=== PATIENT | male | born 1980 | race Caucasian/White ===

== ENCOUNTER → 2017-09-05 | Outpatient (CLI) | payer SELFPAY ==
--- NOTE | 2017-09-05 17:58 | US ---
EXAMINATION TYPE: US scrotum with doppler. Grayscale and color Doppler Duplex imaging performed of t he scrotum. DATE OF EXAM: 09/05/2017 COMPARISON: NONE CLINICAL HISTORY: N50.8 testicular pain. Intermittent pain EXAM MEASUREMENTS: TESTICLES: Right Testicle: 5.2 x 2.3 x 3.7 cm Left Testicle: 4.2 x 2.2 x 3.3 cm EPIDIDYMIS HEAD: Right Epididymis: 1.0 cm Left Epididymis: 1.4 cm Doppler performed to assess for testicular vascularity; good bilateral color flow and waveforms are s een. There is no evidence of testicular torsion. Presence of hydroceles: fluid collection medial/lower to right testicle = 2.5cm and 2.2cm on the lef t Presence of varicoceles: medial to right testicle and inferior to left testicle Heterogeneous right epididymis IMPRESSION: There is evidence of a right-sided varicocele. No testicular torsion or mass. Bilateral h ydroceles.
== END ==
LOC: RADUSWWP 16:11
PROVIDERS: ATTEND Internal Medicine
DX: I86.1 Scrotal varices (principal)
CPT/HCPCS: 76870; 93975

== ENCOUNTER → 2018-05-27 | Day surgery (SDC) | payer BC ==
[2018-05-25 09:15] VITALS: BMI 25.7
[~2018-05-27] MED LIST: BUPIVACAIN-EPI 0.25%-1:200,000 30 ML VIAL SQ ONE; DEXAMETHASONE SOD PHOSPHATE 10 MG/ML 1 ML VIAL IV ONE; GLYCOPYRROLATE 0.2 MG/ML 2 ML VIAL ONE; HEPARIN SODIUM,PORCINE 5,000 UNIT/ML 1 ML VIAL SQ ONE; HYDROmorphone (PF) 1 MG/ML ONE; HYDROmorphone 0.5 MG/0.5 ML SYRINGE IVP PRN; LACTATED RINGERS 1,000 ML IV ONE; LACTATED RINGERS 1,000 ML IV SCH; LIDOCAINE 1% 20 ML VIAL (10MG/ML) FOR IV START INTRADERMA PRN; MIDAZOLAM (PF) 2 MG/2 ML VIAL IV PRN; MIDAZOLAM 2 MG/2 ML VIAL ONE; NEOSTIGMINE 1 MG/ML 10 ML VIAL ONE; ONDANSETRON 4 MG/2 ML VIAL IVP ONE; PROPOFOL 10 MG/ML 20 ML VIAL IV ONE; ROCURONIUM BROMIDE 10 MG/ML 10 ML VIAL IV ONE; ROPIVACAINE 5 MG/ML 30 ML VIAL ONE; SCOPOLAMINE 1.5MG/72HR PATCH TRANSDERM ONE; SUCCINYLCHOLINE CHLORIDE 100 MG/5 ML SYR IV ONE; ceFAZolin IN SWFI 2 GM/20 ML SYRINGE IVP ONE; ePHEDrine SULFATE/0.9% NACL/PF 50 MG/5 ML SYRINGE IV ONE; fentaNYL (PF) 50 MCG/ML 2 ML AMP ONE
--- NOTE | 2018-05-27 10:30 | P.GSHP ---
History of Present Illness H&P Date: 05/27/18 Chief Complaint: Ventral hernia, umbilical hernia This is a 38-year-old male who presents today for laparoscopic robotic system repair of ventral hernia and umbilical hernia. Past Medical History Additional Past Medical History / Comment(s): VENTRAL HERNIA, HX OF ENLARGED HEART CHILD History of Any Multi-Drug Resistant Organisms: None Reported Past Surgical History: Appendectomy Past Anesthesia/Blood Transfusion Reactions: No Reported Reaction Smoking Status: Current every day smoker - Past Family History Mother Family Medical History: No Reported History Medications and Allergies Home Medications Medication Instructions Recorded Confirmed Type Multivitamins, Thera [Multivitamin 1 tab PO DAILY 05/25/18 05/27/18 History (formulary)] Allergies Allergy/AdvReac Type Severity Reaction Status Date / Time No Known Allergies Allergy Verified 05/27/18 09:25 Surgical - Exam Vital Signs Temp Pulse Resp BP Pulse Ox 97.7 F 54 L 16 117/65 100 05/27/18 09:30 05/27/18 09:30 05/27/18 09:30 05/27/18 09:30 05/27/18 09:30 - General well developed, no distress - Eyes PERRL - ENT normal pinna - Neck no masses - Respiratory normal expansion - Cardiovascular Rhythm: regular - Abdomen 2 cm epigastric ventral hernia 2 cm umbilical hernia Abdomen: soft, non tender Assessment and Plan Assessment: Umbilical and ventral hernia. We'll perform laparoscopic robotic-assisted repair.
[2018-05-27] MEDS: MEPERIDINE 50 MG/ML SYRINGE IVP ONE ×2 (11:53→12:06)
[2018-05-27 12:03] VITALS: TEMP 97
[2018-05-27 12:04] VITALS: RESP 16
--- NOTE | 2018-05-27 12:28 | P.OP ---
Date of Procedure: 05/27/18 Preoperative Diagnosis: Incarcerated umbilical hernia Incarcerated ventral hernia Postoperative Diagnosis: Incarcerated umbilical hernia Incarcerated ventral hernia Procedure(s) Performed: Laparoscopic robotic superior of incarcerated umbilical hernia Laparoscopic robotic Of incarcerated ventral hernia Partial omentectomy Anesthesia: JOSE Surgeon: Abraham San Estimated Blood Loss (ml): 5 Pathology: other (Incarcerated fat/omentum) Condition: stable Disposition: PACU Description of Procedure: The patient was placed on the operating table in the supine position. He received general anesthesia. His abdomen was prepped and draped usual fashion. Using a 5 mm optical trocar under direct visualization the peritoneal cavity was entered in the left upper quadrant. The abdomen was then insufflated. The laparoscope was placed back into the perineal cavity. Next a 8 mm robotic trocar was placed in the left lower quadrant and a 12 mm robotic trocar was placed in the left lateral position. The original 5 mm trocar was exchanged for a 8 mm robotic trocar. The patient's placed in the left side up position. And the patient was undocked the robot. The patient had an incarcerated umbilical hernia and a incarcerated ventral hernia in the epigastric midline. The umbilical hernia was visualized. Using hook cautery the peritoneum over the umbilical hernia was excised. The fascial opening was repaired using 0V LOC suture. Next, the hook cautery was used to dissect the peritoneum at the ventral hernia. The incarcerated fat and omentum was dissected free and transected. The fascial defect was then closed using oh strata fix suture. Next a piece of 11 cm round ventral light ST mesh was placed into the. Cavity and secured with 2 OV lock suture. The mesh overlapped both the ventral and umbilical hernia. The patient was undocked the robot. The needles were retrieved. The incarcerated omentum was retrieved. The fascia of the 12 mm trocar site was closed with 0 Ethibond suture. Skin was closed interrupted 3-0 Monocryl suture. Dermabond dressings was applied. Patient top procedure well and was sent to recovery room stable condition.
--- NOTE | 2018-05-27 14:20 | P.ONQ ---
Anesthesiology Proc Note - PNB - Peripheral Nerve Block Performed Bilateral Rectus Abdominis Single Time Out Performed: Yes Procedure Start Time: : Procedure Stop Time: :33 Indication: Acute Post-Operative Pain, Requested by physician Sedation Type: Sedate with meaningful contact maintained Preparation: Sterile Prep Position: Supine Needle Size: 50mm (2") Needle Gauge: 21 Technique: Ultrasound Injectate: 0.5% Ropivacaine (see comment for volume) (ropi .5% 10cc plus xylo1% 10cc each side) Blood Aspirated: No Pain Paresthesia on Injection Noted: No Resistance on Injection: Normal Events: Uneventful and Well Tolerated
[2018-05-27 15:30] VITALS: BP 123/76; PULSE 55
== END ==
LOC: OR 08:59
PROVIDERS: ATTEND Surgery
DX: K42.0 Umbilical hernia with obstruction, without gangrene (principal); K21.9 Gastro-esophageal reflux disease without esophagitis; K43.6 Other and unspecified ventral hernia with obstruction, without gangrene; F17.210 Nicotine dependence, cigarettes, uncomplicated
CPT/HCPCS: 64488; 49653; C1781; J2250 ×2; J1644; J1100; J2710; J2175; J2405; J3010; J1170; J2795; J0330; J2704; J0690

== ENCOUNTER → 2018-08-14 | Outpatient (CLI) | payer BC ==
--- NOTE | 2018-08-14 18:42 | US ---
EXAMINATION TYPE: US carotid duplex BILAT DATE OF EXAM: 08/14/2018 COMPARISON: NONE CLINICAL HISTORY: R22.1 left neck mass. EXAM MEASUREMENTS: RIGHT: Peak Systolic Velocity (PSV) cm/sec ----- Right CCA: 132 ----- Right ICA: 112 ----- Right ECA: 109 ICA/CCA ratio: 0.84 RIGHT: End Diastole cm/sec ----- Right CCA: 40.8 ----- Right ICA: 46.4 ----- Right ECA: 19.0 LEFT: Peak Systolic Velocity (PSV) cm/sec ----- Left CCA: 147 ----- Left ICA: 158 ----- Left ECA: 114 ICA/CCA ratio: 1.07 LEFT: End Diastole cm/sec ----- Left CCA: 41 ----- Left ICA: 44.5 ----- Left ECA: 28 VERTEBRALS (direction of flow): Right Vertebral: Antegrade Left Vertebral: Antegrade Rhythm: Normal No evident plaque, some elevated velocities seen in bilateral CCA's, could be due to high cardiac out put. No velocity increase seen in bilateral ICA's IMPRESSION: No significant stenosis within the visualized ICAs bilaterally as visualized. There is elevated velocities within the common carotid arteries which could be assessed with carotid CTA as c linically warranted. Criteria for Assigning % of Stenosis / Diameter reduction (Estimation based on the indirect measurements of the internal carotid artery velocities (ICA PSV). 1. Normal (no stenosis)=ICA PSV < 125 cm/s: ratio < 2.0: ICA EDV<40 cm/s. 2. Less than 50% stenosis=ICA PSV < 125 cm/s: ratio < 2.0: ICA EDV<40 cm/s. 3. 50 to 69% stenosis=ICA PSV of 125 to 230 cm/s: ration 2.0 ? 4.0: ICA EDV 40-100 cm/s. 4. Greater than 70% stenosis to near occlusion= ICA PSV > 230 cm/s: ratio > 4.0: ICA EDV > 100 cm/s. 5. Near occlusion= ICA PSV velocities may be low or undetectable: variable ratio and ICA EDV. 6. Total occlusion=unable to detect flow.
== END | disposition home or self-care (01) ==
LOC: RADUSWWP 16:59
PROVIDERS: ATTEND Internal Medicine
DX: I99.9 Unspecified disorder of circulatory system (principal); R22.1 Localized swelling, mass and lump, neck
CPT/HCPCS: 93880

== ENCOUNTER → 2019-03-19 | Outpatient (CLI) | payer BC ==
[2019-03-19 17:14] LABS: HCT 40.1 % (39.0-53.0); HGB 13.7 gm/dL (13.0-17.5); MCH 31.2 pg (25.0-35.0); MCHC 34.2 g/dL (31.0-37.0); MCV 91.3 fL (80.0-100.0); Mean Platelet Volume 6.8; Platelet Count 260 k/uL (150-450); RBC 4.39 m/uL (4.30-5.90); WBC 7.9 k/uL (3.8-10.6)
--- NOTE | 2019-03-19 17:25 | XR ---
EXAMINATION TYPE: XR chest 2V DATE OF EXAM: 03/19/2019 COMPARISON: NONE HISTORY: Left sided chest pain TECHNIQUE: Frontal and lateral views of the chest are obtained. FINDINGS: Heart and mediastinum are normal. Lungs are clear. Diaphragm is normal. Bony thorax is int act. IMPRESSION: Normal chest
[2019-03-19 22:41] LABS: Erythrocyte Sedimentation Rate 2 mm/hr (0-15)
[2019-03-19 23:19] LABS: African American GFR (CKD) 132.3 (60.0-200.0); Albumin 4.4 g/dL (3.80-4.90); Albumin/Globulin Ratio 2.2 (1.60-3.17); Calcium 9.5 mg/dL (8.7-10.3); Chol/HDL Ratio 2.17; LDL Cholesterol,Calculated 39.2 mg/dL (0.0-131.0); Potassium 4.3 mmol/L (3.5-5.5); Total Bilirubin 0.6 mg/dL (0.2-1.2); Total Protein 6.4 g/dL (6.2-8.2); VLDL Calculation 15.8 mg/dL (5.00-40.00)
[2019-03-20 00:22] LABS: Hepatitis A Antibody IgM Non-Reactive (Non-Reactive); Hepatitis B Core IgM Non-Reactive (Non-Reactive); Hepatitis B Surface Antigen Non-Reactive (Non-Reactive); Hepatitis C IgG Antibody Non-Reactive (Non-Reactive)
[2019-03-20 13:07] LABS: Hemoglobin A1C 5.7 % (4.0-6.0)
== END | disposition home or self-care (01) ==
LOC: LABWHC1 16:39
PROVIDERS: ATTEND Internal Medicine
DX: R07.9 Chest pain, unspecified (principal); R10.9 Unspecified abdominal pain; R63.4 Abnormal weight loss
CPT/HCPCS: 36415; 71046; 80053; 80061; 80074; 82150; 82550; 82553; 83036; 84439; 84443; 85027; 85652

== ENCOUNTER 2019-03-20 10:44 | Observation (INO) | payer BC ==
[2019-03-20] MEDS ORDERED: NITROGLYCERIN SL TABS 0.4 MG TAB SUBLINGUAL STA (11:46)
[2019-03-20] MEDS ORDERED: ASPIRIN 81 MG PO STA (11:46)
--- NOTE | 2019-03-20 11:46 | ED ---
General Adult HPI - General Chief complaint: Recheck/Abnormal Lab/Rx Stated complaint: Abn labs Time Seen by Provider: 03/20/19 11:10 Source: patient Mode of arrival: ambulatory Limitations: no limitations - History of Present Illness Initial comments: Patient is a 39-year-old male with no past medical history who presents to emergency department as instructed by Dr. Macdonald. He reports that over the past several months he has had issues with intermittent chest pain. He describes it as a chest pressure which radiates into his left arm. He will have numbness and tingling of his left arm. The pain now radiates to his back. States it is exacerbated by stress. Denies pleuritic chest pain. No ripping or tearing sensation to his back. He will have associated shortness of breath and nausea. Denies vomiting. No previous cardiac history. No family history of sudden cardiac . Denies history of DVT or PE. No calf pain or swelling. Denies pedal edema. No history of heart failure. No family history of blood clotting disorders. Because of the patient's symptoms he did go to Dr. Macdonald's office 2 days ago. He performed an EKG and was concerned. The patient then had a chest x-ray and blood work yesterday. His CK-MB was elevated therefore he was instructed to going to the emergency department. He was told by Dr. Macdonald that he needed a stress test and to be seen by a transcripter as he was on the verge of "having a massive heart attack". The patient has a history of angina. States his last stress test was when he was 23 years old. 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 Currently denies any headaches or visual changes. No unilateral weakness. No back or flank pain. Denies any changes in his bowel or bladder habits. There are no other alleviating, precipitating or modifying factors - Related Data Home Medications Medication Instructions Recorded Confirmed Multivitamins, Thera [Multivitamin 1 tab PO DAILY 05/25/18 03/20/19 (formulary)] Albuterol Inhaler [Ventolin Hfa 2 puff INHALATION RT-Q6H PRN 03/20/19 03/20/19 Inhaler] Previous Rx's Medication Instructions Recorded Acetaminophen Tab [Tylenol] 500 mg PO Q6HR PRN tab 03/22/19 Allergies Allergy/AdvReac Type Severity Reaction Status Date / Time No Known Allergies Allergy Verified 03/20/19 11:40 Review of Systems ROS Statement: Those systems with pertinent positive or pertinent negative responses have been documented in the HPI. ROS Other: All systems not noted in ROS Statement are negative. Past Medical History Additional Past Medical History / Comment(s): VENTRAL HERNIA, HX OF ENLARGED HEART CHILD History of Any Multi-Drug Resistant Organisms: None Reported Past Surgical History: Appendectomy Past Anesthesia/Blood Transfusion Reactions: No Reported Reaction Past Psychological History: Depression Smoking Status: Current every day smoker - Past Family History Mother Family Medical History: No Reported History General Exam Limitations: no limitations General appearance: alert, in no apparent distress Head exam: Present: atraumatic, normocephalic, normal inspection Eye exam: Present: normal appearance, PERRL, EOMI. Absent: scleral icterus, conjunctival injection, periorbital swelling ENT exam: Present: normal exam, mucous membranes moist Neck exam: Present: normal inspection. Absent: tenderness, meningismus, lymphadenopathy Respiratory exam: Present: normal lung sounds bilaterally. Absent: respiratory distress, wheezes, rales, rhonchi, stridor Cardiovascular Exam: Present: regular rate, normal rhythm, normal heart sounds. Absent: systolic murmur, diastolic murmur, rubs, gallop, clicks GI/Abdominal exam: Present: soft, normal bowel sounds. Absent: distended, tenderness, guarding, rebound, rigid Extremities exam: Present: normal inspection, full ROM, normal capillary refill. Absent: tenderness, pedal edema, joint swelling, calf tenderness Back exam: Present: normal inspection Neurological exam: Present: alert, oriented X3, CN II-XII intact Psychiatric exam: Present: normal affect, normal mood Skin exam: Present: warm, dry, intact, normal color. Absent: rash Course Vital Signs 03/20/19 03/20/19 11:10 12:36 Temperature 97.7 F Pulse Rate 91 56 L Respiratory 18 18 Rate Blood Pressure 118/77 115/78 O2 Sat by Pulse 98 98 Oximetry EKG Findings - EKG Comments: EKG Findings:: EKG at 1138 demonstrates a normal sinus rhythm with ventricular rate of 63. KY interval 160. QRS 92. QTC 392. There is J-point elevation in leads 2, 3, aVF. No reciprocal changes. EKG IT segment demonstrates a sinus bradycardia with sinus arrhythmia. Rate of 55. KY interval 124. QRS 92. QTC of 402. Continues to be J-point elevation in the inferior leads. No reciprocal changes. EKG was sent from Dr. Macdonald's office and was reviewed which demonstrates ST segment elevation in the inferior leads. Medical Decision Making - Medical Decision Making Upon arrival the patient is placed in room 8. A 12-lead EKG was performed which demonstrates J-point elevation however I do not see signs of acute STEMI. I recommended laboratory studies to include a troponin. I reviewed the patient's chest x-ray which was performed yesterday which demonstrates no acute intrathoracic findings. We did repeat a second EKG which demonstrates no acute findings. Patient was given aspirin and nitro with some relief in his chest pain. I called and discussed case with Dr. Melissa who accepted the admission. I will place cardiology consult. Patient remained in stable condition awaiting bed on the floor - Lab Data Result diagrams: 03/22/19 05:46 03/22/19 05:46 Lab Results 03/20/19 03/20/19 03/20/19 Range/Units 12:00 12:00 12:00 WBC 6.2 (3.8-10.6) k/uL RBC 4.58 (4.30-5.90) m/uL Hgb 13.9 (13.0-17.5) gm/dL Hct 41.3 (39.0-53.0) % MCV 90.3 (80.0-100.0) fL MCH 30.5 (25.0-35.0) pg MCHC 33.7 (31.0-37.0) g/dL RDW 12.0 (11.5-15.5) % Plt Count 253 (150-450) k/uL Neutrophils % 53 % Lymphocytes % 34 % Monocytes % 4 % Eosinophils % 5 % Basophils % 1 % Neutrophils # 3.3 (1.3-7.7) k/uL Lymphocytes # 2.1 (1.0-4.8) k/uL Monocytes # 0.3 (0-1.0) k/uL Eosinophils # 0.3 (0-0.7) k/uL Basophils # 0.1 (0-0.2) k/uL PT 10.7 (9.0-12.0) sec INR 1.0 (<1.2) APTT 26.1 (22.0-30.0) sec D-Dimer <0.17 (<0.60) mg/L FEU Sodium 139 (137-145) mmol/L Potassium 4.2 (3.5-5.1) mmol/L Chloride 105 (98-107) mmol/L Carbon Dioxide 25 (22-30) mmol/L Anion Gap 9 mmol/L BUN 24 H (9-20) mg/dL Creatinine 0.75 (0.66-1.25) mg/dL Est GFR (CKD-EPI)AfAm >90 (>60 ml/min/1.73 sqM) Est GFR (CKD-EPI)NonAf >90 (>60 ml/min/1.73 sqM) Glucose 90 (74-99) mg/dL Calcium 9.5 (8.4-10.2) mg/dL Magnesium 2.0 (1.6-2.3) mg/dL Total Bilirubin 0.6 (0.2-1.3) mg/dL AST 22 (17-59) U/L ALT 32 (21-72) U/L Alkaline Phosphatase 39 (38-126) U/L Creatine Kinase 152 (55-170) U/L Troponin I (0.000-0.034) ng/mL Total Protein 6.9 (6.3-8.2) g/dL Albumin 4.1 (3.5-5.0) g/dL 03/20/19 Range/Units 12:00 WBC (3.8-10.6) k/uL RBC (4.30-5.90) m/uL Hgb (13.0-17.5) gm/dL Hct (39.0-53.0) % MCV (80.0-100.0) fL MCH (25.0-35.0) pg MCHC (31.0-37.0) g/dL RDW (11.5-15.5) % Plt Count (150-450) k/uL Neutrophils % % Lymphocytes % % Monocytes % % Eosinophils % % Basophils % % Neutrophils # (1.3-7.7) k/uL Lymphocytes # (1.0-4.8) k/uL Monocytes # (0-1.0) k/uL Eosinophils # (0-0.7) k/uL Basophils # (0-0.2) k/uL PT (9.0-12.0) sec INR (<1.2) APTT (22.0-30.0) sec D-Dimer (<0.60) mg/L FEU Sodium (137-145) mmol/L Potassium (3.5-5.1) mmol/L Chloride (98-107) mmol/L Carbon Dioxide (22-30) mmol/L Anion Gap mmol/L BUN (9-20) mg/dL Creatinine (0.66-1.25) mg/dL Est GFR (CKD-EPI)AfAm (>60 ml/min/1.73 sqM) Est GFR (CKD-EPI)NonAf (>60 ml/min/1.73 sqM) Glucose (74-99) mg/dL Calcium (8.4-10.2) mg/dL Magnesium (1.6-2.3) mg/dL Total Bilirubin (0.2-1.3) mg/dL AST (17-59) U/L ALT (21-72) U/L Alkaline Phosphatase (38-126) U/L Creatine Kinase (55-170) U/L Troponin I <0.012 (0.000-0.034) ng/mL Total Protein (6.3-8.2) g/dL Albumin (3.5-5.0) g/dL Disposition Clinical Impression: Chest pain Disposition: ADMITTED IP TO THIS [facility] Condition: Stable Is patient prescribed a controlled substance at d/c from ED?: No Decision to Admit Reason: Admit from EC Decision Date: 03/20/19 Decision Time: 13:27
[2019-03-20 12:22] LABS: Basophils # (A) 0.1 k/uL (0-0.2); Basophils % (A) 1 %; Eosinophils # (A) 0.3 k/uL (0-0.7); Eosinophils % (A) 5 %; HCT 41.3 % (39.0-53.0); HGB 13.9 gm/dL (13.0-17.5); Lymphocytes # (A) 2.1 k/uL (1.0-4.8); Lymphocytes % (A) 34 %; MCH 30.5 pg (25.0-35.0); MCHC 33.7 g/dL (31.0-37.0); MCV 90.3 fL (80.0-100.0); Mean Platelet Volume 6.9; Monocytes # (A) 0.3 k/uL (0-1.0); Monocytes % (A) 4 %; Neutrophils # (A) 3.3 k/uL (1.3-7.7); Neutrophils % (A) 53 %; Platelet Count 253 k/uL (150-450); RBC 4.58 m/uL (4.30-5.90); WBC 6.2 k/uL (3.8-10.6)
[2019-03-20 12:37] LABS: ALT 32 U/L (21-72); AST 22 U/L (17-59); African American GFR (CKD) >90 (>60 ml/min/1.73 sqM); Albumin 4.1 g/dL (3.5-5.0); Alkaline Phosphatase 39 U/L (38-126); Anion Gap 9 mmol/L; Blood Urea Nitrogen 24 mg/dL (9-20); Calcium 9.5 mg/dL (8.4-10.2); Carbon Dioxide 25 mmol/L (22-30); Chloride 105 mmol/L (98-107); Creatine Kinase 152 U/L (55-170); Glucose 90 mg/dL (74-99); Potassium 4.2 mmol/L (3.5-5.1); Sodium 139 mmol/L (137-145); Total Bilirubin 0.6 mg/dL (0.2-1.3); Total Protein 6.9 g/dL (6.3-8.2)
[2019-03-20 12:38] LABS: D-Dimer <0.17 mg/L FEU (<0.60); Partial Thromboplastin Time 26.1 sec (22.0-30.0); Prothrombin Time 10.7 sec (9.0-12.0)
[2019-03-20] MEDS ORDERED: NALOXONE 0.4 MG/ML 1 ML VIAL IV PRN (13:24)
[2019-03-20] MEDS ORDERED: ALBUTEROL NEBULIZED 2.5 MG/3 ML INHALATION PRN (16:31)
[2019-03-20] MEDS ORDERED: ACETAMINOPHEN TAB 500 MG TAB PO PRN (16:32)
[2019-03-20] MEDS ORDERED: LORazepam 0.5 MG TAB PO PRN (16:32)
[2019-03-20] MEDS ORDERED: TEMAZEPAM 15 MG CAP PO PRN (16:32)
--- NOTE | 2019-03-20 16:50 | CT ---
EXAMINATION TYPE: CT angio chest DATE OF EXAM: 03/20/2019 4:37 PM COMPARISON: None HISTORY: chest pain CT DLP: 324.9 mGycm Automated exposure control for dose reduction was used. CONTRAST: CTA scan of the thorax is performed with IV Contrast, patient injected with 79cc mL of Isovue 370, pu lmonary embolism protocol. . There are 3-D post processed images. FINDINGS: The lungs are clear of infiltrate. There is no evidence of a pulmonary mass. There is no pleural effu felicia. Heart size is normal. There is no pericardial effusion. There are no hilar masses. There is no mediastinal adenopathy. Thoracic aorta shows no aneurysm or dissection. The bony thorax is intact. There is normal contrast opacification of the pulmonary arteries. There are no filling defects. IMPRESSION: NORMAL EXAM. NO EVIDENCE OF PULMONARY EMBOLISM.
--- NOTE | 2019-03-20 19:56 | HP ---
HISTORY AND PHYSICAL DATE OF SERVICE: 03/20/2019 CHIEF COMPLAINT: Chest pain. HISTORY OF PRESENT ILLNESS: This 39-year-old gentleman with a past medical history of multiple medical problems including history of GERD, history of vascular disease, ventral hernia, history of enlarged heart as a child, palpitations, history of gynecomastia, history of bronchitis, varicose veins, history of bipolar, schizoaffective disorder, being followed by Dr. Macdonald in the outpatient setting, complaining of chest pains. The chest pain is felt in the anterior part of the chest which is sometimes radiating to the back and on the side also which is mostly discomfort and sometimes sharp in character, also. The pain was getting worse over the past several days and the patient was followed by Dr. Macdonald and recommend the patient to come to the hospital, but the patient has come to the ER only today. EKG showed peaked T-waves in the lateral leads. Otherwise, there is no history of fever, rigors or chills. No history of headache, loss of consciousness or seizures. Patient also reports that the patient is also for the last one year, which is increasing in intensity. Sometimes associated with stress also and relieved with sleep according to him. PAST MEDICAL HISTORY: History of chest pain, history of GERD, history of ventral hernia, history of enlarged heart, history of bipolar schizoaffective disorder. MEDICATIONS: Home medications are multivitamins one p.o. daily, Albuterol p.r.n. ALLERGIES: None. FAMILY HISTORY: Family history of hypertension in family. SOCIAL HISTORY: History of smoking. No history of alcohol intake. REVIEW OF SYSTEMS: ENT: No diminished vision. No diminished hearing. CARDIOVASCULAR SYSTEM: As mentioned earlier. RESPIRATORY: As mentioned earlier. GI no nausea or vomiting. no dysuria. NERVOUS SYSTEM: No numbness or weakness. ALLERGY/IMMUNOLOGY: No asthma or hayfever. MUSCULOSKELETAL: As mentioned earlier. HEMATOLOGY/ONCOLOGY: No history of anemia. ENDOCRINE: No history of diabetes or hypothyroidism. CONSTITUTIONAL: As mentioned earlier. DERMATOLOGY: Negative. RHEUMATOLOGY negative. PSYCHIATRY as mentioned earlier. PHYSICAL EXAMINATION: Alert and oriented x3. Pulse is 55. Blood pressure 121/80, respirations 16, temperature 98 degrees, pulse ox 98% on room air. HEENT: Conjunctivae normal. Oral mucosa moist. NECK is no jugular venous distention. No carotid bruit. No lymph node enlargement. CARDIOVASCULAR: S1-S2 muffled. RESPIRATION: Breath sounds diminished in the bases. No rhonchi. No crackles. ABDOMEN: Soft, nontender. No mass palpable. LEGS: No edema. No swelling. NERVOUS SYSTEM: Higher functions as mentioned earlier. Moves all 4 limbs. No focal motor or sensory deficits. Lymphatics: No lymph nodes palpable in the neck, axillae or groin. SKIN: No ulcer, rash or bleeding. JOINTS: No deforming arthropathy. EKG done repeatedly reviewed including ST changes and peaked T-waves, possible early repolarization changes, otherwise other labs, CBC within normal limits. BUN is 24. ASSESSMENT: 1. Chest pain possible unstable angina. 2. Possible early repolarization changes in the EKG. 3. History of gastroesophageal reflux disease. 4. History of ventral hernia. 5. History enlarged heart as a child. 6. History of gynecomastia. 7. History of bronchitis. 8. History of varicoceles. 9. History of bipolar and schizoaffective disorder. 10.History of nicotine dependence, continued ongoing. 11.FULL CODE. RECOMMENDATIONS AND DISCUSSION: In this 39-year-old gentleman who presented with multiple complex medical issues, we will monitor the patient closely, continue the current medications, management and symptomatic treatment. Otherwise, at this time I recommend rule out myocardial infarction. Cardiology consult. Unstable angina protocol. Guarded prognosis because of multiple complex medical issues. Further recommendations to follow. Repeat labs have also been recommended. MMODL / IJN: [id number] / MTDD
[2019-03-20] MEDS: NICOTINE POLACRILEX 2 MG GUM BUCCAL PRN (20:01)
[2019-03-21] MEDS: NICOTINE POLACRILEX 2 MG GUM BUCCAL PRN ×4 (05:43→23:31)
[2019-03-21] MEDS ORDERED: SODIUM CHLORIDE 0.9% 1,000 ML IV SCH (06:45)
[2019-03-21] MEDS ORDERED: ENOXAPARIN 80 MG/0.8 ML SYRINGE SQ STA (06:45)
[2019-03-21 07:20] LABS: Basophils % (A) 1 %; Eosinophils # (A) 0.3 k/uL (0-0.7); Eosinophils % (A) 5 %; HCT 44.1 % (39.0-53.0); HGB 15.1 gm/dL (13.0-17.5); Lymphocytes # (A) 1.9 k/uL (1.0-4.8); Lymphocytes % (A) 29 %; MCH 31.4 pg (25.0-35.0); MCHC 34.2 g/dL (31.0-37.0); MCV 91.9 fL (80.0-100.0); Monocytes # (A) 0.3 k/uL (0-1.0); Monocytes % (A) 5 %; Neutrophils # (A) 3.7 k/uL (1.3-7.7); Neutrophils % (A) 57 %; Platelet Count 268 k/uL (150-450); RDW 12.1 % (11.5-15.5); WBC 6.4 k/uL (3.8-10.6)
[2019-03-21 07:38] LABS: African American GFR (CKD) >90 (>60 ml/min/1.73 sqM); Anion Gap 7 mmol/L; Blood Urea Nitrogen 16 mg/dL (9-20); Calcium 9.5 mg/dL (8.4-10.2); Carbon Dioxide 25 mmol/L (22-30); Chloride 108 mmol/L (98-107); Glucose 100 mg/dL (74-99); Potassium 4.6 mmol/L (3.5-5.1); Sodium 140 mmol/L (137-145)
--- NOTE | 2019-03-21 07:50 | CONS ---
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 Does not have any significant past medical history. However, he does have a history of previous amphetamine and cocaine use in the past. He came into the hospital with chest pain, sharp in nature in the left lower aspect of the sternum and he also had another sharp pain in the left lateral aspect of the chest. This lasted 4 hours. Pain was focal, nonradiating, unassociated with activity. However, he also indicates to me that he is under a lot of stress, both at work as well as at home and his troponins are normal. EKG is unremarkable. He is resting comfortably. He has been having this pain on and off and he saw his primary care physician who advised him to see a food adviser and explained to him that he may require a stress test. There is an element of anxiety and also patient seems quite exhausted. He had a told me that the first day he had a good sleep was last night when he came in and slept here in the hospital. He is resting comfortably without symptoms. PAST MEDICAL HISTORY: This is remarkable for use of some amphetamines and cocaine use in the past. He has had some ventral hernia surgical repair. He has had an appendectomy. He does not have any hypertension, diabetes, or any previous hospitalization with chest pain. He had a stress test 10 years ago that was normal. He has some underlying depression. SOCIAL HISTORY: The patient is a smoker, smokes about half a pack every day. ALLERGIES: None. MEDICATIONS: He occasionally takes an albuterol inhaler. PHYSICAL EXAMINATION: Blood pressure is 118/70, pulse rate is 64 per minute and regular. HEENT unremarkable. Fundus was not examined by me. Neck is supple. No JVD. I do not hear a carotid bruit. There is no thyromegaly. Heart exam reveals S1, S2 heard normally. No rub, murmur or gallop. Lungs are clear. Abdomen is soft, nontender. Lower extremities reveal normal pulses. No edema. Central nervous system is normal. EKG revealed sinus mechanism. Some early repolarization type picture. No acute changes. Patient also had a CT angiogram that was negative for any aortic pathology or pulmonary embolism. LABORATORY STUDIES: Three sets of troponins are normal. IMPRESSION: 1. Atypical chest pain. 2. Anxiety. 3. History of previous drug use. RECOMMENDATIONS: I have advised the patient that we will do a stress test tomorrow and if this is normal, he can be discharged. I will do a stress echo in the morning and based on the findings, he can be discharged. This will be on Friday. In the interim, if he has any chest pain, he will communicate with me. I will give him 1 dose of Lovenox and 0.9 saline at 75 mL/hour. I have discussed my thoughts in detail with the patient. Thank you very much for the consult. KIKE / DUANE: [id number] /
[2019-03-21] MEDS: MULTIVITAMINS, THERA 1 EACH TAB PO SCH (09:19)
--- NOTE | 2019-03-21 17:58 | PN ---
PROGRESS NOTE DATE OF SERVICE: 03/21/2019. This 39-year-old gentleman who was admitted with chest pain, is being closely monitored. Patient is complaining of some chest pain epigastric and lower part of the chest pain. No fever. No cough. Cardiology following the patient for possible stress test tomorrow. EXAM: Alert and oriented times three. Pulse 50, blood pressure 115/60, respiration 18, temperature 97.7, pulse ox 98% on room air. HEENT is conjunctivae normal. Neck: No JVD. CARDIOVASCULAR: S1, S2. RESPIRATION: Breath sounds diminished in the bases. No rhonchi. No crackles. ABDOMEN is soft, minimal diffuse tenderness in the epigastrium. No mass palpable. LEGS are no edema. No swelling. CENTRAL NERVOUS SYSTEM: No focal deficits. LABS: CBC within normal limits. Otherwise glucose 100. Other labs are noted. TSH is normal. ASSESSMENT: 1. Chest pain possible unstable angina possible gastroesophageal reflux disease. 2. Possible early repolarization changes in the EKG. 3. History of gastroesophageal reflux disease. 4. History of ventral hernia. 5. History of enlarged heart as a child. 6. History of gynecomastia. 7. History of bronchitis. 8. History of varicose veins. 9. History of bipolar schizoaffective disorder. 10.History of nicotine dependence, continued ongoing. 11.FULL CODE. RECOMMENDATIONS AND DISCUSSION: Recommend to continue current medications, management, symptomatic treatment. Continue with unstable angina protocol. Closely follow with Cardiology. Guarded prognosis because of multiple complex medical issues. Further recommendations to follow. Possible stress test in the morning. Further recommendations to follow. MMODL / IJN: [id number] /
[2019-03-22 06:13] LABS: Basophils # (A) 0.1 k/uL (0-0.2); Basophils % (A) 1 %; Eosinophils # (A) 0.4 k/uL (0-0.7); Eosinophils % (A) 7 %; HCT 42.5 % (39.0-53.0); HGB 14.1 gm/dL (13.0-17.5); Lymphocytes # (A) 2.1 k/uL (1.0-4.8); Lymphocytes % (A) 35 %; MCH 30.8 pg (25.0-35.0); MCHC 33.1 g/dL (31.0-37.0); MCV 93.1 fL (80.0-100.0); Mean Platelet Volume 6.5; Monocytes # (A) 0.4 k/uL (0-1.0); Monocytes % (A) 6 %; Neutrophils # (A) 2.8 k/uL (1.3-7.7); Neutrophils % (A) 48 %; Platelet Count 249 k/uL (150-450); RBC 4.57 m/uL (4.30-5.90); RDW 12.1 % (11.5-15.5); WBC 5.8 k/uL (3.8-10.6)
[2019-03-22 06:36] LABS: African American GFR (CKD) >90 (>60 ml/min/1.73 sqM); Anion Gap 6 mmol/L; Blood Urea Nitrogen 15 mg/dL (9-20); Carbon Dioxide 27 mmol/L (22-30); Chloride 107 mmol/L (98-107); Glucose 95 mg/dL (74-99); Potassium 4.5 mmol/L (3.5-5.1); Sodium 140 mmol/L (137-145)
[2019-03-22] MEDS: NICOTINE POLACRILEX 2 MG GUM BUCCAL PRN (09:25)
--- NOTE | 2019-03-22 10:26 | P.PN ---
Subjective This is a pleasant 39-year-old male with no significant past medical history. He has a remote history of cocaine and amphetamine use in the past. He is on observation secondary to chest pain. He continues to have intermittent sharp pain in the left precordial region not associated with activity or exertion. No associated shortness of breath, dizziness or palpitations. GENERAL: Well-appearing, well-nourished and in no acute distress. NECK: Supple without JVD or thyromegaly. LUNGS: Breath sounds clear to auscultation bilaterally. Respiration equal and unlabored. No wheezes, rales or rhonchi. HEART: Regular rate and rhythm without murmurs, rubs or gallops. S1 and S2 heard. EXTREMITIES: Normal range of motion, no edema. No clubbing or cyanosis. Peripheral pulses intact. ASSESSMENT Chest pain, atypical. An acute coronary event has been ruled out. Early repolarization noted. Chronic nicotine dependence Anxiety History of illicit drug use PLAN Proceed with stress echocardiogram as previously ordered. If stress test is normal he may be discharged from a cardiac perspective. Ongoing medical evaluation of etiology. Symptoms may be musculoskeletal in nature or related to anxiety. Smoking cessation recommended. Nurse Practitioner note has been reviewed, I agree with a documented findings and plan of care. Patient was seen and examined. Objective - Vital Signs Vital signs: Vital Signs Temp 97.7 F 03/22/19 07:56 Pulse 56 L 03/22/19 08:00 Resp 17 03/22/19 08:00 BP 133/75 03/22/19 07:56 Pulse Ox 99 03/22/19 07:56 Intake & Output 03/21/19 03/22/19 03/22/19 18:59 06:59 18:59 Other: Voiding Method Toilet Toilet Toilet # Voids 1 - Labs CBC & Chem 7: 03/22/19 05:46 03/22/19 05:46
[2019-03-22] MEDS: MULTIVITAMINS, THERA 1 EACH TAB PO SCH (10:52)
[2019-03-22 11:02] LABS: Cholesterol 92 mg/dL (<200); HDL Cholesterol 44 mg/dL (40-60); LDL Cholesterol,Calculated 40 mg/dL (0-99); Triglycerides 38 mg/dL (<150)
--- NOTE | 2019-03-22 11:24 | CONS ---
CONSULTATION This is a young man with atypical chest pain, persistent with a lot of anxiety. His vital signs are stable, asymptomatic, ambulating without symptoms. I will do a stress echo and if this is normal, he can be discharged. KIKE / IJN: [id number] /
[2019-03-22 12:29] VITALS: BP 107/64; PULSE 81; RESP 18; TEMP 98.2
--- NOTE | 2019-03-22 15:42 | ECHOS ---
STRESS ECHOCARDIOGRAM INDICATIONS: Chest pain. MEDICATIONS: BASELINE HEART RATE: 61 BASELINE BLOOD PRESSURE: 107/56 MAXIMUM HEART RATE: 172 MAXIMUM BLOOD PRESSURE: 181/60 85% MPHR: 156 100% MPHR: 183 METS: 14.1 MAXIMUM STAGE REACHED: 5 TOTAL EXERCISE TIME: 13:30 RESULTS: Baseline EKG revealed normal sinus rhythm without significant ST changes. Patient walked for 13 minutes 30 seconds and achieved a maximal heart rate of 165 beats per minute. Developed fatigue, shortness of breath, but did not have angina or arrhythmia. EKG did not reveal any ST-segment changes to indicate ischemia. By EKG criteria, this is a negative stress test with excellent exercise capacity. Baseline echo images revealed normal wall motion and wall thickening of all segments. At peak exercise there was good augmentation of left ventricular wall motion and wall thickening of all segments suggesting that there is no evidence of stress-induced ischemia on this study. FINAL IMPRESSION: 1. Excellent exercise capacity with a negative stress test by EKG criteria. 2. Normal stress echocardiogram. MMODL / IJN: [id number] /
--- NOTE | 2019-03-23 08:36 | DS ---
DISCHARGE SUMMARY DATE OF SERVICE: 03/22/2019 FINAL DIAGNOSES: 1. Chest pain possible musculoskeletal pain, negative stress echo. 2. Other diagnoses are: Possible early repolarization on the EKG. 3. History of gastroesophageal reflux disease. 4. History of ventral hernia. 5. History of enlarged heart as a child. 6. History of gynecomastia. 7. History of bronchitis. 8. History of varicose veins. 9. History of bipolar schizoaffective disorder. 10.History of nicotine dependence, continued ongoing. 11.FULL CODE. DISCHARGE DISPOSITION: The patient will be discharged in stable condition with guarded prognosis. HISTORY OF PRESENT ILLNESS: This 39-year-old gentleman with a past medical history of multiple medical problems admitted with chest pain. EKG showed some ST-T changes. The patient follows with Dr. Macdonald in the outpatient setting. Cardiology performed a stress echo and CTA was also negative. Stress echo was also negative. Patient improved significantly. On exam, vitals are stable. CARDIOVASCULAR: S1, S2 muffled. ABDOMEN: Soft. NERVOUS SYSTEM: No focal deficits. Labs are also within normal limits. DISCHARGE ADVICE AND MEDICATIONS: 1. Diet is cardiac. 2. Activity limited until followup. 3. Follow up with Dr. Macdonald in 2-3 days. 4. Follow up with Cardiology as recommended. Medications are: 1. Multivitamins 1 p.o. daily. 2. Albuterol p.r.n. 3. Tylenol p.r.n. Once again, the patient will be discharged in a stable condition with guarded prognosis. MMODL / IJN: [id number] /
== END 2019-03-22 13:02 ==
LOC: EC 10:44 → 1SOBS 13:24
PROVIDERS: ADMIT Hospitalist; ATTEND Hospitalist
DX: R07.89 Other chest pain (principal); F41.9 Anxiety disorder, unspecified; R06.02 Shortness of breath; R11.0 Nausea; R20.0 Anesthesia of skin; R20.2 Paresthesia of skin; K21.9 Gastro-esophageal reflux disease without esophagitis; I86.1 Scrotal varices; F31.9 Bipolar disorder, unspecified; F25.0 Schizoaffective disorder, bipolar type; N62 Hypertrophy of breast; F17.210 Nicotine dependence, cigarettes, uncomplicated; Z87.898 Personal history of other specified conditions; Z87.19 Personal history of other diseases of the digestive system; Z87.09 Personal history of other diseases of the respiratory system; Z90.49 Acquired absence of other specified parts of digestive tract; Z86.79 Personal history of other diseases of the circulatory system; Z82.49 Family history of ischemic heart disease and other diseases of the circulatory system
CPT/HCPCS: 93005 ×2; 96372; 99285; 36415; 93351; 85379; 80061; 80053; 80048 ×2; 84443; 82550; 83735; 84484; 85025 ×3; 85610; 85730; 71275; G0378 ×3; J1650; Q9967

== ENCOUNTER → 2019-05-14 | Outpatient (CLI) | payer OTHER ==
--- NOTE | 2019-05-14 22:12 | MR ---
EXAMINATION TYPE: MR brain wo con DATE OF EXAM: 05/14/2019 COMPARISON: NONE HISTORY: Headaches, Facial twitch TECHNIQUE: Multiplanar, multisequence imaging of the brain and brainstem is performed without IV cont rast. FINDINGS: Diffusion weighted images demonstrate no evidence of a recent infarct or other diffusion abnormality. There is a small 1.8 focus of T1 hypointensity and T2 hyperintensity overlying left frontal lobe caus ing some osseous of erosive changes likely reflecting arachnoid cyst or other nonaggressive etiology. No destructive osseous change is seen to suggest more aggressive etiology. The ventricular system a nd cisternal spaces are normal in size and appearance. The brain volume is age appropriate. Midline structures demonstrate normal morphology. The craniocervical junction appears within normal limits. Normal vascular flow voids are present. There is overall noticed small caliber vertebrobasila r system with basilar artery measuring under 2 mm in diameter. There is [id number] mucosal thic kening involving anterior ethmoid sinuses bilaterally. There are additional mucous retention cysts or polyps axial image 7 likely within the anterior aspect of the sphenoid sinuses. Mild to moderate muc osal thickening involving the inferior frontal sinuses. Mild mucosal thickening inferior right maxill jovita sinus with small mucous retention cyst or polyp inferiorly left maxillary sinus coronal image 8. Globes are intact bilaterally. IMPRESSION: 1. Chronic paranasal sinus disease as detailed above. 2. There is 1.8 cm extra-axial lesion likely arachnoid cyst over left frontal lobe with local mass ef fect causing some erosive change of the inner table of the left frontal calvarium. 3. Small caliber vertebrobasilar system, correlate for underlying vertebrobasilar insufficiency.
== END ==
LOC: RADMRIMAIN 19:09
PROVIDERS: ATTEND Internal Medicine
DX: R51 Headache (principal)
CPT/HCPCS: 70551

== ENCOUNTER 2019-05-20 14:36 | Emergency (ER) | payer OTHER ==
[2019-05-20 15:15] VITALS: PULSE 80; RESP 16; TEMP 98
--- NOTE | 2019-05-20 16:28 | ED ---
Recheck HPI - General Chief Complaint: Recheck/Abnormal Lab/Rx Stated Complaint: abnormal MRI Time Seen by Provider: 05/20/19 15:11 Source: patient, RN notes reviewed, old records reviewed Mode of arrival: ambulatory Limitations: no limitations - History of Present Illness Initial Comments: This patient's a 39-year-old male, he presents emergency department today with his girlfriend permitting quicker appointment due to an abnormal MRI. Patient reports that he had an MRI for persistent headaches, and occasional facial twitching these noticed over the past 2 months. At this time Patient states that he was close follow-up with his primary care doctor in regards to MRI finding. He states that he has an arachnoid cyst onver his frontal lobe. Ramona ent states that sometimes he feels a pressure or pain over the left side of his face. Patient states that he has an appointment to follow-up with neurology in 2 weeks. He was concerned that he could not follow up with his primary care doctor due to insurance today and felt that he would have the results of his MRI explained to him. He denies any persistent neurological deficits, seizures. He states he does get occasional headaches that are managed with Motrin or Tylenol. - Related Data Home Medications Medication Instructions Recorded Confirmed Multivitamins, Thera [Multivitamin 1 tab PO DAILY 05/25/18 03/20/19 (formulary)] Albuterol Inhaler [Ventolin Hfa 2 puff INHALATION RT-Q6H PRN 03/20/19 03/20/19 Inhaler] Previous Rx's Medication Instructions Recorded Acetaminophen Tab [Tylenol] 500 mg PO Q6HR PRN tab 03/22/19 Allergies Allergy/AdvReac Type Severity Reaction Status Date / Time No Known Allergies Allergy Verified 03/20/19 11:40 Review of Systems ROS Statement: Those systems with pertinent positive or pertinent negative responses have been documented in the HPI. ROS Other: All systems not noted in ROS Statement are negative. Past Medical History Past Medical History: Chest Pain / Angina, GERD/Reflux, Respiratory Disorder, Vascular Disorder Additional Past Medical History / Comment(s): VENTRAL HERNIA, HX OF ENLARGED HE ART CHILD History of Any Multi-Drug Resistant Organisms: None Reported Past Surgical History: Appendectomy Additional Past Surgical History / Comment(s): hernia surgery with mesh, inguinal and ventral hernia surgery, gynecomastia Past Anesthesia/Blood Transfusion Reactions: No Reported Reaction Past Psychological History: Depression Smoking Status: Current every day smoker Past Alcohol Use History: None Reported Past Drug Use History: None Reported - Past Family History Mother Family Medical History: No Reported History General Exam - General Exam Comments Initial Comments: 39 year old male, no distress. Limitations: no limitations General appearance: alert, in no apparent distress Head exam: Present: atraumatic, normocephalic, normal inspection Eye exam: Present: normal appearance, PERRL, EOMI. Absent: scleral icterus, conjunctival injection, periorbital swelling ENT exam: Present: normal exam Neck exam: Present: normal inspection. Absent: tenderness, meningismus, lymphadenopathy Respiratory exam: Present: normal lung sounds bilaterally. Absent: respiratory distress, wheezes, rales, rhonchi, stridor Cardiovascular Exam: Present: regular rate GI/Abdominal exam: Present: soft, normal bowel sounds. Absent: distended, tenderness, guarding, rebound, rigid Extremities exam: Present: normal inspection, full ROM, normal capillary refill. Absent: tenderness, pedal edema, joint swelling, calf tenderness Back exam: Present: normal inspection Neurological exam: Present: alert, oriented X3, CN II-XII intact Psychiatric exam: Present: normal affect, normal mood Skin exam: Present: warm, dry, intact, normal color. Absent: rash Course Vital Signs 05/20/19 05/20/19 15:13 16:41 Temperature 98 F 98 F Pulse Rate 80 80 Respiratory 16 16 Rate Blood Pressure 130/85 128/78 O2 Sat by Pulse 99 99 Oximetry Medical Decision Making - Medical Decision Making 39-year-old male presents today for evaluation for concern for abnormal MRI finding. He had an outpatient MRI and once results is negative. He does have an outpatient appointment with neurology scheduled in 2 weeks. I discussed at this time patient's MRI findings show a 1.8 cm arachnoid cyst. Is no persistent neurological deficits. Patient at this time because of significant headache. Vital signs are stable. He appears in no distress. Discussed this time Patient wasn't further symptoms can follow-up with neurology outpatient only. Did give some referrals for neurosurgery as well. Patient is agreeable to this plan , discussed if there was any seizure activity other persistent neurological the mastoid return to the ER promptly. Patient and his girlfriend understand treatment plan. Discussed case with Dr. Power. - Radiology Data Radiology results: report reviewed Patient's outpatient MRI was reviewed and is 1.8 cm likely arachnoid cyst of the frontal lobe with enhancement over the erosion calvarium. No acute intracranial hemorrhage or mass effect seen. Patient also has diminished vertebral basal artery system. Disposition Clinical Impression: Intracranial arachnoid cyst, Abnormal MRI of head Disposition: HOME SELF-CARE Condition: Good Additional Instructions: Patient advised to follow up with outpatient neurology and can also attempt foll ow-up with Dr. Stokes. Continue to take Motrin for headache. Always return if there is any focal or persistent neurological deficit. Is patient prescribed a controlled substance at d/c from ED?: No Referrals: Ivory Macdonald MD [Primary Care Provider] - 1-2 days Justice Dorman MD [REFERRING] - 1-2 days
[2019-05-20 16:42] VITALS: BP 128/78
== END 2019-05-20 16:49 | disposition home or self-care (01) ==
LOC: EC 14:36
DX: G93.0 Cerebral cysts (principal); R93.0 Abnormal findings on diagnostic imaging of skull and head, not elsewhere classified; R51 Headache; R25.3 Fasciculation; F17.200 Nicotine dependence, unspecified, uncomplicated
CPT/HCPCS: 99283

== ENCOUNTER → 2019-06-07 | Outpatient (CLI) | payer OTHER ==
--- NOTE | 2019-06-07 08:15 | MR ---
EXAMINATION TYPE: MR angio head wo con DATE OF EXAM: 06/07/2019 COMPARISON: NONE HISTORY: Rt Facial Pain / Hyperreflexia TECHNIQUE: Utilizing 3-D [id number] intracranial MRA of the [place] was performed. FINDINGS: The vertebrobasilar and carotid systems are patent. There is 2 mm prominence near the anterior commu nicating artery artery. Vertebrobasilar system is diminutive in size. Posterior cerebral arteries or iginate from the anterior circulation bilaterally. There is a hypoplastic A1 segment of the left ante rior cerebral artery. IMPRESSION: 1. Question a tiny 2 mm aneurysm near the anterior communicating artery. Recommend 6-12 month follow- up to confirm stability.
--- NOTE | 2019-06-07 08:21 | MR ---
EXAMINATION TYPE: MR cervical spine wo con DATE OF EXAM: 06/07/2019 COMPARISON: None HISTORY: Rt Facial Pain / Hyperreflexia TECHNIQUE: Multiplanar, multisequence images of the cervical spine were acquired. C2-C3: No evidence for degenerative disc disease. No disc bulge/herniation or protrusion. No Canal stenosis. Foramina are patent bilaterally. C3-C4: No evidence for degenerative disc disease. No disc bulge/herniation or protrusion. No Canal stenosis. Foramina are patent bilaterally. C4-C5: No evidence for degenerative disc disease. No disc bulge/herniation or protrusion. No Canal stenosis. Foramina are patent bilaterally. C5-C6: There is uncovertebral joint hypertrophy bilaterally with mild broad-based central disc bulgin g but no focal herniation or canal stenosis. Neural foramina remain patent. C6-C7: Broad annular tear and broad-based central and left paracentral disc bulging or small protrusi on. Neural foramina patent. No spinal cord contact or canal stenosis. C7-T1: No evidence for degenerative disc disease. No disc bulge/herniation or protrusion. No Canal stenosis. Foramina are patent bilaterally. Cervical segments are intact. There is normal alignment. Cervical spinal cord is of normal signal. Cerebellar tonsils are low-lying in position approximately 1 to 2 mm below the foramen magnum. IMPRESSION: 1. Annular tear and broad-based disc bulging or small protrusion greater paracentrally to left C6-C7 with no canal stenosis or foraminal encroachment. 2. Mild broad-based central disc bulging C5-C6 with no focal herniation, canal stenosis, or foraminal encroachment. 3. Low-lying cerebellar tonsils measuring approximately 1 to 2 mm below the foramen magnum.
--- NOTE | 2019-06-07 08:35 | MR ---
EXAMINATION TYPE: MR iac wo con DATE OF EXAM: 06/07/2019 COMPARISON: MRI brain 05/14/2019 HISTORY: Rt Facial Pain / Hyperreflexia CONTRAST: mL MultiHance TECHNIQUE: T1-weighted sagittal, diffusion, T2, and FLAIR axial views of the brain are submitted. The high-reso lution T2 axial and postcontrast T1 axial and coronal views of the IACs were not completed as the pat ient could no longer tolerate the exam. FINDINGS: Due to the lack of contrast assessment for cerebellopontine angle mass is markedly limited. There is no evidence of acute ischemia. Ventricular system is midline. Changes of chronic sinusitis noted. No abnormal signal the visualized white matter. Cerebellar tonsils low-lying in position at the level of the foramen magnum. There is a CSF prominence overlying the left frontal bone stable from the prior exam measuring 1.8 cm . Correlate for small arachnoid cyst. IMPRESSION: 1. Assessment for cerebellopontine angle mass limited as the patient could not tolerate the exam for contrast imaging. 2. Stable left frontal CSF prominence most likely related to a small 1.8 cm arachnoid cyst. 3. Chronic sinusitis. 4. Low-lying cerebellar tonsils. 5. Advanced noted in the MRA and MRI of the brain vertebrobasilar system is diminutive. Posterior cer ebral arteries originate from the anterior circulation and this likely is congenital.
== END | disposition home or self-care (01) ==
LOC: RADMRIMAIN 07:13
PROVIDERS: ATTEND Neurological Surgery
DX: R51 Headache (principal); M50.222 Other cervical disc displacement at C5-C6 level; R22.0 Localized swelling, mass and lump, head; G93.89 Other specified disorders of brain; R29.2 Abnormal reflex
CPT/HCPCS: 70544; 70551; 72141

== ENCOUNTER → 2020-07-21 | Outpatient (CLI) | payer OTHER ==
[2020-07-21 15:42] LABS: ALT 20 U/L (4-49); AST 25 U/L (17-59); African American GFR (CKD) >90 (>60 ml/min/1.73 sqM); Albumin 4.4 g/dL (3.5-5.0); Albumin/Globulin Ratio 1.8; Alkaline Phosphatase 55 U/L (38-126); Anion Gap 6 mmol/L; Blood Urea Nitrogen 22 mg/dL (9-20); Calcium 9.3 mg/dL (8.4-10.2); Carbon Dioxide 29 mmol/L (22-30); Chloride 102 mmol/L (98-107); Globulin 2.5 g/dL; Glucose 98 mg/dL (74-99); Non-African American GFR(CKD) >90 (>60 ml/min/1.73 sqM); Potassium 4.4 mmol/L (3.5-5.1); Sodium 137 mmol/L (137-145); Total Bilirubin 0.5 mg/dL (0.2-1.3); Total Protein 6.9 g/dL (6.3-8.2)
[2020-07-21 15:57] LABS: T4, Free (Free Thyroxine) 1.06 ng/dL (0.78-2.19)
--- NOTE | 2020-07-21 16:24 | XR ---
EXAMINATION TYPE: XR chest 2V DATE OF EXAM: 07/21/2020 COMPARISON: Chest x-ray 03/19/2019 HISTORY: R06.02, F 17.210, unexplained weight loss TECHNIQUE: Frontal and lateral views of the chest are obtained. FINDINGS: There is no focal air space opacity, pleural effusion, or pneumothorax seen. The cardiac silhouette size is within normal limits. The osseous structures are intact. IMPRESSION: No acute cardiopulmonary process.
[2020-07-21 22:43] LABS: Basophils # (A) 0.08 X 10*3/uL (0.00-0.10); Eosinophils # (A) 0.58 X 10*3/uL (0.04-0.35); Eosinophils % (A) 7.3 %; HCT 41.3 % (39.6-50.0); HGB 13.7 g/dL (13.0-17.0); Lymphocytes # (A) 3.16 X 10*3/uL (0.90-5.00); Lymphocytes % (A) 39.8 %; MCH 31.4 pg (27.0-32.0); MCHC 33.2 g/dL (32.0-37.0); MCV 94.5 fL (80.0-97.0); Mean Platelet Volume 10.3 fL (9.5-12.2); Monocytes # (A) 0.63 X 10*3/uL (0.20-1.00); Monocytes % (A) 7.9 %; Neutrophils # (A) 3.47 X 10*3/uL (1.80-7.70); Neutrophils % (A) 43.9 %; Platelet Count 285 X 10*3/uL (140-440); RBC 4.37 X 10*6/uL (4.40-5.60); RDW 12.6 % (11.5-14.5); WBC 7.93 X 10*3/uL (4.50-10.00)
[2020-07-22 01:54] LABS: Hemoglobin A1C 5.7 % (4.0-6.0)
== END | disposition home or self-care (01) ==
LOC: LABWHC1 13:50
PROVIDERS: ATTEND Internal Medicine
DX: R06.02 Shortness of breath (principal); R53.83 Other fatigue; F17.210 Nicotine dependence, cigarettes, uncomplicated; R63.4 Abnormal weight loss
CPT/HCPCS: 36415; 71046; 80053; 83036; 84403; 84439; 84443; 84481; 85025

== ENCOUNTER → 2021-08-14 | Outpatient (CLI) | payer OTHER ==
--- NOTE | 2021-08-14 13:14 | XR ---
Bilateral orbits HISTORY: S00.259A 3 views of the orbits There is punctate radiopaque foreign body noted at the level the right orbit medially. Bone mineraliz ation is normal. No air-fluid levels in the paranasal sinuses to suggest acute hemorrhage. IMPRESSION: There is a punctate radiopaque foreign body, CT scan through the orbits may be of benefit for better evaluation
== END | disposition home or self-care (01) ==
LOC: RADXRMAIN 12:49
PROVIDERS: ATTEND Family Medicine
DX: S00.259A Superficial foreign body of unspecified eyelid and periocular area, initial encounter (principal); X58.XXXA Exposure to other specified factors, initial encounter
CPT/HCPCS: 70200

== ENCOUNTER → 2021-09-17 | Outpatient (CLI) | payer OTHER ==
[2021-09-17 23:11] LABS: C Reactive Protein <0.30 mg/dL (0.00-0.80); Rheumatoid Factor, Qnt <10 IU/mL (0-15)
[2021-09-18 11:38] LABS: HLA B27 NEGATIVE
[2021-09-18 12:57] LABS: Angiotensin-1 Converting Enz. 34 U/L (8-52)
[2021-09-26 01:09] LABS: Lysozyme, Serum or Body Fluid 5.4 mcg/mL (5.0-11.0)
== END | disposition home or self-care (01) ==
LOC: LABWHC1 15:54
PROVIDERS: ATTEND Ophthalmology
DX: Z00.00 Encounter for general adult medical examination without abnormal findings (principal); S00.259A Superficial foreign body of unspecified eyelid and periocular area, initial encounter; Y99.9 Unspecified external cause status
CPT/HCPCS: 36415; 82164; 85549; 86140; 86431; 86812

== ENCOUNTER → 2021-10-18 | Outpatient (CLI) | payer OTHER ==
--- NOTE | 2021-10-18 11:21 | XR ---
EXAMINATION TYPE: XR orbit complete bilateral DATE OF EXAM: 10/18/2021 COMPARISON: 08/14/2021 HISTORY: Pre-MRI clearance TECHNIQUE: 3 views submitted FINDINGS: No metallic foreign body overlying the orbits. Osseous structures intact. IMPRESSION: No metallic foreign body overlying the orbits.
== END | disposition home or self-care (01) ==
LOC: RADXRMAIN 11:00
PROVIDERS: ATTEND Family Medicine
DX: Z01.818 Encounter for other preprocedural examination (principal)
CPT/HCPCS: 70200

== ENCOUNTER 2022-05-30 15:31 | Emergency (ER) | payer OTHER ==
[2022-05-30 15:58] VITALS: BP 131/85; PULSE 62; RESP 20; TEMP 98.6
[2022-05-30] MEDS ORDERED: DEXAMETHASONE SOD PHOSPHATE 10 MG/ML 1 ML VIAL IM STA (16:17)
--- NOTE | 2022-05-30 16:22 | ED ---
ENT HPI - General Chief complaint: ENT Stated complaint: Ear Pain Time Seen by Provider: 05/30/22 16:03 Source: patient, RN notes reviewed, old records reviewed Mode of arrival: ambulatory Limitations: no limitations - History of Present Illness Initial comments: This is a well-appearing 42-year-old male that presents to the emergency room with complaints of left earache. Patient states he has been seeing a neurologist since 2019 for this same pain. Has had CTs and MRIs. Was directed to have another MRI outpatient but has not been able to get into his doctor. Today it became worse. He states he has been using earplugs all day and normally only wears them at work. He denies any drainage or hearing loss. Denies any trauma. MD complaint: ear pain (left) -: year(s) (3, worse today) Location: L ear Severity scale (1-10): 7 Quality: constant, other (pressure) Consistency: constant - Related Data Home Medications Medication Instructions Recorded Confirmed Multivitamins, Thera [Multivitamin 1 tab PO DAILY 05/25/18 03/20/19 (formulary)] Albuterol Inhaler [Ventolin Hfa 2 puff INHALATION RT-Q6H PRN 03/20/19 03/20/19 Inhaler] Previous Rx's Medication Instructions Recorded Acetaminophen Tab [Tylenol] 500 mg PO Q6HR PRN tab 03/22/19 Amoxicillin 875 mg PO Q12HR 5 Days #10 tablet 05/30/22 Allergies Allergy/AdvReac Type Severity Reaction Status Date / Time No Known Allergies Allergy Verified 05/30/22 15:57 Review of Systems ROS Statement: Those systems with pertinent positive or pertinent negative responses have been documented in the HPI. ROS Other: All systems not noted in ROS Statement are negative. Past Medical History Past Medical History: Chest Pain / Angina, GERD/Reflux, Respiratory Disorder, Vascular Disorder Additional Past Medical History / Comment(s): VENTRAL HERNIA, HX OF ENLARGED HEART CHILD History of Any Multi-Drug Resistant Organisms: None Reported Past Surgical History: Appendectomy Additional Past Surgical History / Comment(s): hernia surgery with mesh, inguinal and ventral hernia surgery, gynecomastia Past Anesthesia/Blood Transfusion Reactions: No Reported Reaction Past Psychological History: Depression Smoking Status: Former smoker, Vaper Past Alcohol Use History: Occasional Past Drug Use History: Marijuana - Past Family History Mother Family Medical History: No Reported History General Exam Limitations: no limitations General appearance: alert, in no apparent distress Head exam: Present: atraumatic, normocephalic Eye exam: Present: normal appearance. Absent: scleral icterus, conjunctival injection, periorbital swelling ENT exam: Present: mucous membranes moist Expanded TM/Canal exam: Erythema: Left TM (canal) Mouth exam: Absent: drooling, trismus, muffled voice Neck exam: Present: normal inspection, full ROM. Absent: tenderness, meningismus Respiratory exam: Absent: respiratory distress, accessory muscle use Cardiovascular Exam: Present: regular rate Extremities exam: Present: normal capillary refill Neurological exam: Present: alert, oriented X3, normal gait Psychiatric exam: Present: normal affect, normal mood Skin exam: Present: warm, dry, normal color. Absent: cyanosis, diaphoretic, petechiae, pallor Course Vital Signs 05/30/22 15:55 Temperature 98.6 F Pulse Rate 62 Respiratory 20 Rate Blood Pressure 131/85 O2 Sat by Pulse 100 Oximetry Medical Decision Making - Medical Decision Making Patient presents with 3 years of chronic left ear pain. He had an MRI in May 2019 of head face neck and orbits. Has been seeing a neurologist and directed to have follow-up MRI but has not been able to get an appointment. He was directed to follow up with his neurologist and ENT as referred. Upon exam there is no evidence of ear infection however there is erythema to the canal with pain. He denies any visual disturbances or hearing loss. No neck pain. No lymphadenopathy. Denies any fevers. Pain is worse with movement of the external ear and on otoscope exam. He was given a shot of Decadron for inflammation. Patient requesting antibiotics which were provided.. Case discussed with Dr. Power Was pt. sent in by a medical professional or institution? @ -No Did you speak to anyone other than the patient for history? @ -No Did you review nursing and triage notes? @ -Yes I agree Were old charts reviewed? @ -MRI reports Differential Diagnosis? @ -Otitis externa, otitis media, trauma, foreign body What testing was considered but not performed? (CT, X-rays, U/S, labs)? Why? @No What meds were considered but not given? Why? @ -No Did you discuss the management of the patient with other professionals? @ -No Did you reconcile home meds? @ -No Was smoking cessation discussed for >3mins.? @ -No Was critical care preformed (if so, how long)? @ -No Were there social determinants of health that impacted care today? How? (Homelessness, low income, unemployed, alcoholism, drug addiction, transportation, low edu. Level, literacy, decrease access to med. care, fdc, rehab)? @ -None Was there de-escalation of care discussed even if they declined? (Discuss DNR or withdrawal of care, Hospice)? @ -No What co-morbidities impacted this encounter? (DM, HTN, Smoking, COPD, CAD, Cancer, CVA, Hep., AIDS, mental health diagnosis, sleep apnea, morbid obesity)? @ -No Was patient admitted / discharged? @ -Discharged Undiagnosed new problem with uncertain prognosis? @ -[none] Drug Therapy requiring intensive monitoring for toxicity (Heparin, Nitro, Insulin, Cardizem)? @ -No Were any procedures done? @ -No Diagnosis/symptom? @ -Chronic left ear pain Acute, or Chronic, or Acute on Chronic? @ -, Chronic Uncomplicated (without systemic symptoms) or Complicated (systemic symptoms)? @ -Uncomplicated Side effects of treatment? @ -[none] Exacerbation, Progression, or Severe Exacerbation] @ -[no] Poses a threat to life or bodily function? @ -[no] Disposition Clinical Impression: Chronic ear pain Disposition: HOME SELF-CARE Condition: Good Instructions (If sedation given, give patient instructions): Earache (ED) Additional Instructions: Take antibiotics as prescribed and follow up with ENT and your primary care doctor next week. I also recommend you contact your neurologist for continuation of care and repeat MRI Prescriptions: Amoxicillin 875 mg PO Q12HR 5 Days #10 tablet Is patient prescribed a controlled substance at d/c from ED?: No Referrals: Radha Almeida MD [Primary Care Provider] - 1-2 days Peterson Harley DO [Doctor of Osteopathic Medicine] - 1-2 days Time of Disposition: 16:26
== END 2022-05-30 16:55 | disposition home or self-care (01) ==
LOC: EC 15:31
DX: G89.29 Other chronic pain (principal); H92.02 Otalgia, left ear; F32.A Depression, unspecified; F12.90 Cannabis use, unspecified, uncomplicated; Z87.891 Personal history of nicotine dependence
CPT/HCPCS: 99282; 96372; J1100

== ENCOUNTER → 2024-02-23 | Outpatient (CLI) | payer OTHER ==
--- NOTE | 2024-02-23 14:55 | XR ---
EXAMINATION TYPE: XR shoulder complete 3 views LT, XR lumbosacral spine 5V, XR pelvis AP view, XR Hip Complete 2 views LT XR femur 2 views LT DATE OF EXAM: 02/23/2024 Comparison: None Clinical History: 44-year-old male M25.512 pain L shoulder. M79.18 L buttock pain. M51.9 lumbar dis c disease Findings: Left shoulder: AC joint appears congruent and intact. Subacromial space is preserved. No acute fracture, subluxation , or dislocation. Visualized left hemithorax appears clear. Lumbar spine: 5 lumbar type vertebral bodies. Multilevel moderate degenerative disc disease L3-L4 with disc space n arrowing and anterior plate spondylosis. Scattered mild facet arthropathy. Trace grade 1 retrolisthes is L3-L4. Remaining alignment is maintained. Vertebral body heights are preserved. No pars interartic ularis defect. Pelvis and left hip: SI joints appear symmetric and intact as does the pubic symphysis and both hips. Hip joint space is m aintained. No acute fracture, subluxation, dislocation. Left femur: No periostitis or osteolysis. Corticated ossific densities at the tibial tuberosity. No acute fractur e. Impression: 1. Left shoulder: No acute osseous abnormality seen. 2. Lumbar spine: [id number] degenerative disc disease focally at L3-L4. Trace grade 1 retrolist hesis here at L3-L4. No vertebral compression collapse or pars defect. 3. Pelvis and left hip: No acute osseous abnormality seen. 4. 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 No acute oss eous abnormality seen. [facility], , 02/23/2024 2:53 PM
== END | disposition home or self-care (01) ==
LOC: RADXRMAIN 12:20
PROVIDERS: ATTEND Family Medicine
DX: M51.369 Other intervertebral disc degeneration, lumbar region without mention of lumbar back pain or lower extremity pain (principal); M43.16 Spondylolisthesis, lumbar region; M25.512 Pain in left shoulder; G89.29 Other chronic pain
CPT/HCPCS: 72110; 72170; 73502